=== PATIENT | female | born 1960 | race Caucasian/White ===

== ENCOUNTER → 2020-08-06 09:03 | Outpatient (CLI) | payer OTHER, SELFPAY ==
[2020-08-06 10:09] LABS: Alanine Aminotransferase 27 IU/L (<35); Albumin 4.2 g/dL (3.5-5.0); Albumin Globulin Ratio 1.6 (1.0-2.8); Alkaline Phosphatase 70 U/L (38-126); Aspartate Aminotransferase 26 IU/L (14-36); BUN Creatinine Ratio 25.4 (6-22); Bilirubin Total 0.4 mg/dL (0.2-1.3); Blood Urea Nitrogen 18 mg/dL (7-17); Calcium 9.2 mg/dL (8.4-10.2); Carbon Dioxide 28 mmol/L (22-32); Chloride 102 mmol/L (98-107); Cholesterol 160 mg/dL (140-199); Estimated Glomerular Filt Rate > 60.0 mL/min (>60); Globulin 2.6 g/dL (1.7-4.1); Glucose 120 mg/dL (70-100); HDL Cholesterol 67 mg/dL (40-60); HEMOLYSIS < 15 (0-50); LDL Cholesterol Calculated 50 mg/dL (<100); Sodium 135 mmol/L (137-145); Total Protein 6.8 g/dL (6.3-8.2); Triglycerides 216 mg/dL (35-150)
== END ==
PROVIDERS: PCP Registered Nurse; Referring Provider Registered Nurse; Visit Provider Registered Nurse
DX: I10 Essential (primary) hypertension (principal); Z83.42 Family history of familial hypercholesterolemia
CPT/HCPCS: 36415; 80053; 80061

== ENCOUNTER → 2020-09-30 16:10 | Outpatient (CLI) | payer OTHER, SELFPAY ==
[2020-09-30 18:10] LABS: Add Manual Diff / Slide Review NO; Basophils Absolute Auto 0 /uL (0-100); Basophils Percent Auto 0.3 % (0-2); Eosinophils Absolute Auto 0 /uL (0-450); Eosinophils Percent Auto 0.4 % (2-4); Hematocrit 42.2 % (36-46); Hemoglobin 14.9 g/dL (12.0-16.0); Lymphocytes Absolute Auto 1600 /uL (1100-4500); Lymphocytes Percent Auto 21.4 % (25-40); Mean Corpuscular HGB Conc 35.3 % (30-36); Mean Corpuscular Hemoglobin 33.5 PG (26-34); Mean Corpuscular Volume 94.8 fL (80-100); Monocytes Absolute Auto 900 /uL (0-900); Monocytes Percent Auto 11.4 % (3-14); Neutrophils Absolute Auto 5000 /uL (1500-7000); Neutrophils Percent Auto 66.5 % (50-75); Platelet Count 270 X10^3/uL (150-400); Red Blood Cell Count 4.45 X10^6/uL (4.0-5.2); Red Cell Distribution Width 12.6 % (11.6-14.8); White Blood Cell Count 7.6 X10^3/uL (4.5-11.0)
[2020-09-30 18:21] LABS: Alanine Aminotransferase 31 IU/L (<35); Albumin 4.5 g/dL (3.5-5.0); Albumin Globulin Ratio 1.8 (1.0-2.8); Alkaline Phosphatase 74 U/L (38-126); Aspartate Aminotransferase 35 IU/L (14-36); BUN Creatinine Ratio 20.8 (6-22); Bilirubin Total 0.4 mg/dL (0.2-1.3); Blood Urea Nitrogen 22 mg/dL (7-17); Calcium 9.2 mg/dL (8.4-10.2); Carbon Dioxide 28 mmol/L (22-32); Chloride 102 mmol/L (98-107); Estimated Glomerular Filt Rate 53.2 mL/min (>60); Globulin 2.5 g/dL (1.7-4.1); Glucose 100 mg/dL (70-100); HEMOLYSIS < 15 (0-50); Sodium 135 mmol/L (137-145)
== END ==
PROVIDERS: PCP Registered Nurse; Referring Provider Registered Nurse; Visit Provider Registered Nurse
DX: Z01.812 Encounter for preprocedural laboratory examination (principal)
CPT/HCPCS: 36415; 80053; 85025

== ENCOUNTER → 2021-03-14 07:45 | Outpatient (CLI) | payer OTHER, SELFPAY ==
[2021-03-14 08:56] LABS: BUN Creatinine Ratio 21.4 (6-22); Blood Urea Nitrogen 15 mg/dL (7-17); Calcium 9.3 mg/dL (8.4-10.2); Carbon Dioxide 25 mmol/L (22-32); Chloride 103 mmol/L (98-107); Estimated Glomerular Filt Rate > 60.0 mL/min (>60); Glucose 111 mg/dL (70-100); HEMOLYSIS < 15 (0-50); Potassium 4.5 mmol/L (3.4-5.1); Sodium 137 mmol/L (137-145)
== END ==
PROVIDERS: PCP Nurse Practitioner Family; Referring Provider Nurse Practitioner Family; Visit Provider Nurse Practitioner Family
DX: R94.4 Abnormal results of kidney function studies (principal)
CPT/HCPCS: 36415; 80048

== ENCOUNTER → 2021-05-06 15:53 | Outpatient (CLI) | payer OTHER, SELFPAY ==
[2021-05-06 16:55] LABS: Hemoglobin A1C% w Est Avg Glu 5.6 % (4.0-6.0)
== END ==
PROVIDERS: PCP Nurse Practitioner Family; Referring Provider Nurse Practitioner Family; Visit Provider Nurse Practitioner Family
DX: R73.09 Other abnormal glucose (principal)
CPT/HCPCS: 36415; 83036

== ENCOUNTER → 2021-09-04 07:39 | Outpatient (CLI) | payer OTHER, SELFPAY ==
[2021-09-04 09:10] LABS: Hematocrit 43.6 % (36-46); Hemoglobin 15.3 g/dL (12.0-16.0); Mean Corpuscular HGB Conc 35.2 % (30-36); Mean Corpuscular Hemoglobin 32.8 PG (26-34); Platelet Count 254 X10^3/uL (150-400); Red Blood Cell Count 4.68 X10^6/uL (4.0-5.2); Red Cell Distribution Width 12.3 % (11.6-14.8); White Blood Cell Count 6.7 X10^3/uL (4.5-11.0)
[2021-09-04 09:30] LABS: Alanine Aminotransferase 28 IU/L (<35); Albumin 4.5 g/dL (3.5-5.0); Alkaline Phosphatase 94 U/L (38-126); Aspartate Aminotransferase 32 IU/L (14-36); BUN Creatinine Ratio 21.6 (6-22); Bilirubin Total 0.4 mg/dL (0.2-1.3); Blood Urea Nitrogen 16 mg/dL (7-17); Calcium 9.3 mg/dL (8.4-10.2); Carbon Dioxide 27 mmol/L (22-32); Chloride 105 mmol/L (98-107); Cholesterol 147 mg/dL (140-199); Estimated Glomerular Filt Rate > 60.0 mL/min (>60); Globulin 2.3 g/dL (1.7-4.1); Glucose 95 mg/dL (70-100); HDL Cholesterol 45 mg/dL (40-60); HEMOLYSIS < 15 (0-50); LDL Cholesterol Calculated 76 mg/dL (<100); Potassium 4.5 mmol/L (3.4-5.1); Sodium 139 mmol/L (137-145); Total Protein 6.8 g/dL (6.3-8.2); Triglycerides 132 mg/dL (35-150)
== END ==
PROVIDERS: PCP Nurse Practitioner Family; Referring Provider Nurse Practitioner Family; Visit Provider Nurse Practitioner Family
DX: I10 Essential (primary) hypertension (principal); Z00.00 Encounter for general adult medical examination without abnormal findings; E78.5 Hyperlipidemia, unspecified
CPT/HCPCS: 36415; 80053; 80061; 85027

== ENCOUNTER → 2021-10-08 16:29 | Outpatient (CLI) | payer OTHER, SELFPAY ==
--- NOTE | 2021-10-08 16:30 | DI.MG.S_ITS ---
BILATERAL DIGITAL SCREENING MAMMOGRAM 3D/2D WITH CAD: 10/08/2021 CLINICAL: Routine screening. Family history of breast cancer. Comparison is made to exams dated: 03/01/2020 mammogram, 12/22/2017 mammogram, and 11/19/2015 mammogram - outside location. There are scattered fibroglandular elements in both breasts. Current study was also evaluated with a Computer Aided Detection (CAD) system. No significant masses, calcifications, or other findings are seen in either breast. There has been no significant interval change. IMPRESSION: NEGATIVE There is no mammographic evidence of malignancy. A 1 year screening mammogram is recommended. This exam was interpreted at Station ID: [id number]. NOTE: For mammograms, a report in lay terms will be sent to the patient. Approximately 15% of breast malignancies will not be visualized mammographically. In the management of a palpable breast mass, a negative mammogram must not discourage biopsy of a clinically suspicious lesion. Electronically Signed By: Regulo Boyle M.D., jr/tonia:10/09/2021 09:25:38 letter sent: Normal Exam ACR BI-RADS Category 1: Negative [id number]
== END ==
PROVIDERS: PCP Nurse Practitioner Family; Referring Provider Nurse Practitioner Family; Visit Provider Nurse Practitioner Family
DX: Z12.31 Encounter for screening mammogram for malignant neoplasm of breast (principal); Z80.3 Family history of malignant neoplasm of breast
CPT/HCPCS: 77063; 77067

== ENCOUNTER → 2021-12-24 11:44 | Outpatient (CLI) | payer OTHER, SELFPAY ==
--- NOTE | 2021-12-24 11:46 | DI.RAD.S_ITS ---
PROCEDURE: XR KNEE RT 3V INDICATIONS: Left knee pain >> Right TECHNIQUE: 3 views of the knee were acquired. COMPARISON: None. FINDINGS: Bones: No acute fracture or dislocation. There is mild medial femorotibial compartment narrowing, intercondylar osteophytes, and small tricompartmental osteophytes. Soft tissues: No joint effusion. No suspicious soft tissue calcifications. IMPRESSION: Mild right knee osteoarthritis. Dictated by: Yuni Mcclain M.D. on 12/24/2021 at 12:36 Approved by: Yuni Mcclain M.D. on 12/24/2021 at 12:42
--- NOTE | 2021-12-24 11:46 | DI.RAD.S_ITS ---
PROCEDURE: XR KNEE LT 3V INDICATIONS: Left knee pain >> Right TECHNIQUE: 3 views of the knee were acquired. COMPARISON: None. FINDINGS: Bones: No acute fracture or dislocation. There is mild femorotibial and patellofemoral joint space narrowing and tricompartmental osteophytes. Soft tissues: No joint effusion. No suspicious soft tissue calcifications. IMPRESSION: Mild left knee osteoarthritis. Dictated by: Yuni Mcclain M.D. on 12/24/2021 at 12:59 Approved by: Yuni Mcclain M.D. on 12/24/2021 at 13:03
== END ==
PROVIDERS: PCP Family Medicine; Referring Provider Family Medicine; Visit Provider Family Medicine
DX: M17.0 Bilateral primary osteoarthritis of knee (principal); M25.561 Pain in right knee; M25.562 Pain in left knee
CPT/HCPCS: 73562

== ENCOUNTER 2022-03-17 09:00 | Outpatient (RCR) | payer OTHER, SELFPAY ==
--- NOTE | 2022-02-19 16:58 | PT.OIE ---
Current Diagnoses Pain in right knee (02/19/22) Pain in left knee (02/19/22) Difficulty in walking, not elsewhere classified (02/19/22) Past Medical History (Last Reviewed 01/05/22 @ 11:57 by Mei Gomez MD) BMI 39.0-39.9,adult Decreased GFR (09/2020) Past Surgical History (Last Reviewed 01/05/22 @ 11:57 by Mei Gomez MD) Anesthesia History of section (~1996) History of cholecystectomy (~2016) Hx of laparoscopic gastric banding (~2004) Visit Care Team Role Provider Type Mei Gomez MD Attending Provider Physician Family Provider Primary Care Provider Referring Provider Specialty: Family Practice Address: [address] [place] [address], [id number] Phone: Fax: Email: [email or web address] Initial Evaluation PT-OP-A Visit Information Start: 02/16/22 12:15 Freq: Status: Active Protocol: Document 02/19/22 09:45 AW (Rec: 02/16/22 12:27 AW [id number]) Out-Patient Physical Therapy Visit Information Visit Information Visit Type Initial Evaluation Visit Start Time 09:00 Visit Stop Time 09:45 Total Visit Minutes 45 Visit Number 1 Number of PHONE SPECIALIST Visits 0 Evaluation Information Evaluation Date 02/17/22 PT-OP-B Current Condition Start: 02/16/22 12:15 Freq: Status: Active Protocol: Document 02/19/22 09:45 AW (Rec: 02/16/22 12:27 AW [id number]) Current Condition History of Current Condition Onset Date 10 years, worse recently Current Complaints bilateral knee pain History of Current Condition Tejas has had bilateral knee pain for at least 10 years with insidious onset, no trauma. Pain has been worse in the past few months. She describes knee pain around her kneecaps. It is worst going down hills or stairs. She swims three times weekly as she is training for an international open water swim. Swim training has been ongoing for over a year. Tejas recently realized she was kicking more with her knees than with her hips and has been working to modify her form. She also enjoys hiking and riding her e-bike. PMH includes cholecystectomy, gastric banding, decreased GFR (though improved on recent labs). Pt is otherwise healthy . She is retired from [employer] where she worked with [employer] . 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 Prior Treatments and Tests 12/24/21: xrays - Left mild femorotiabial and patellofemoral joint space narrowing and tricompartmental osteophytes. Right mild medial femorotibial narrowing, small tricompartmental osteophytes. Future Testing and Treatments Planned None identified Treatment Goals Patient/Caregiver Goals Hike down hills,walk down stairs, and swim without knee pain. Improve balance. Improve biking tolerance. Personal Factors Other Personal Factors That May Effect Pt travels frequently which Therapy/Recovery may leave large gaps in her therapy schedule. PT-OP-C Subjective Start: 02/16/22 12:15 Freq: Status: Active Protocol: Document 02/19/22 09:45 AW (Rec: 02/19/22 14:26 AW [id number]) Patient Questionnaires Lower Extremity Functional Scale LEFS Score 65 LEFS Impairment 1 to 19% Impaired (Score 63-79 ) OP-PT Pain Assessment Pain Assessment Grid Paper Pain Assessment Grid Completed Yes: scanned to EMR PT-OP-D Balance Start: 02/16/22 12:15 Freq: Status: Active Protocol: Document 02/19/22 09:45 AW (Rec: 02/19/22 14:26 AW [id number]) Balance Tests Single Limb Standing Single Limb- Right 10-15 sec with lateral shear, positive trendelenberg sign Single Limb- Left 15 sec with lateral shear, positive trendelenberg sign PT-OP-F Manual Assessment Start: 02/16/22 12:15 Freq: Status: Active Protocol: Document 02/19/22 09:45 AW (Rec: 02/19/22 14:26 AW [id number]) Manual Assessments Soft Tissue Assessment Soft Tissue Mobility Assessment Slight hyperdensity distal quadriceps bilaterally. Joint Mobility Assessment Joint Mobility Assessment Reduced patellar glides bilaterally - especially superiorly. Passive SLR to 80 degrees hip flexion bilaterally. Vaguely limited hip IR compared with ER both sides likely due to femoral retroversion. PT-OP-G Mobility & Gait Start: 02/16/22 12:15 Freq: Status: Active Protocol: Document 02/19/22 09:45 AW (Rec: 02/19/22 14:26 AW [id number]) OP Gait Assessment Comments Gait Comments Pt ambulates with vague trendelenberg sign bilaterally . Hips are externally rotated and feet are excessively pronated (right more affected than left). Weak toe-off both sides. PT-OP-H Neuro Start: 02/16/22 12:15 Freq: Status: Active Protocol: Document 02/19/22 09:45 AW (Rec: 02/19/22 16:31 AW [id number]) Sensation Evaluation Gross Sensation Gross Sensation WNL PT-OP-K Range of Motion Start: 02/16/22 12:15 Freq: Status: Active Protocol: Document 02/19/22 09:45 AW (Rec: 02/19/22 16:31 AW [id number]) Hip Goniometric Range of Motion Hip BILAT Hip ROM WFL Yes Hip ROM Limitations Comments Passive SLR to ~80 deg bilaterally. IR:ER ratio ~ 1:2 . Knee Goniometric Range of Motion Knee bilat Knee ROM WFL Yes Patient Position Supine Flexion Active (degrees) 135 Flexion Passive (degrees) 145 Extension Active (degrees) 0 Comments End-ranges do not reproduce pain Ankle and Foot Goniometric Range of Motion Ankle and Foot bilat Ankle/Foot ROM WFL Yes PT-OP-L Special Tests Start: 02/16/22 12:15 Freq: Status: Active Protocol: Document 02/19/22 09:45 AW (Rec: 02/19/22 16:31 AW [id number]) Special Tests Knee Special Tests Jefry's Test Test Results negative bilaterally Patellar Grind Test Test Results positive bilaterally Comments Crepitus and pain reproduction with patellar grind Thessaly Test 5 Degrees Test Results negative bilaterally ligament stress tests Test Results negative Lachmans, valgus and varus stress, posterior draw PT-OP-M Strength Start: 02/16/22 12:15 Freq: Status: Active Protocol: Document 02/19/22 09:45 AW (Rec: 02/19/22 16:37 AW [id number]) Hip Strength Hip Manual Muscle Testing bilat Flexion (L2) 4+ Good+ Extension (S1) 4+ Good+ Abduction 4 Good External Rotation 5 Normal Internal Rotation 5 Normal Knee Strength Knee Manual Muscle Testing bilat Flexion (S2) 4+ Good+ Extension (L3) 5 Normal Ankle/Foot Strength Ankle and Foot Manual Muscle Testing bilat Dorsiflexion (L4) 5 Normal Plantarflexion (S1) 4+ Good+ PT-OP-Q Treatments Start: 02/16/22 12:15 Freq: Status: Active Protocol: Document 02/19/22 09:45 AW (Rec: 02/19/22 16:37 AW [id number]) Manual Therapy Treatment Soft Tissue Mobilization distal quads Body Location distal quads Mobilization Type Rolling,Strumming Intensity/Depth Moderate Body Position Supine Joint Mobilizations P-F Joint palellofemoral Direction superior Grade III Body Position Supine Self-Care/Home Management Treatment Education Other Education Reviewed evaluation findings and proposed plan of care centered on relieving patellofemoral pain, improving hip strength, and general posterior chain strength. Pt understood and agreed. PT-OP-T Assessment and Plan Start: 02/16/22 12:15 Freq: Status: Active Protocol: Document 02/19/22 09:45 AW (Rec: 02/19/22 16:58 AW [id number]) Physical Therapy Assessment Rehab Potential Rehabilitation Potential Good Evaluation Complexity Number of Personal Factors/Comorbidities 1-2 Number of Body Systems Impaired 1-2 Clinical Presentation at Evaluation Stable Impairments Impairments Balance,Gait,Pain,Soft Tissue Mobility,Strength Goals Three Impairment decreased hip strength Longterm Goal (LTG) Pt will improve hip abduction and extension strength to 5/5 for improved kick in swimming. LTG Duration 04/22/22 Two Impairment pain with stair/hill descent Short Term Goal (STG) Pt will descend lobby stairs ( 28 x 4 step) without increase in baseline pain. STG Duration 03/20/22) Longterm Goal (LTG) Pt will hike one hour or longer including incline/ declines without increase in baseline pain. LTG Duration 04/22/22 One Impairment lacks HEP Short Term Goal (STG) Pt will be instructed in HEP for pain management and LE strength to support therapy services provided in clinic. STG Duration 03/20/22 LTG Duration 04/22/22 Assessment Summary Assessment Tejas is a 61 yo woman who attends physical therapy with bilateral knee pain of insidious onset. Her knees have bothered her for about 10 years but more so recently. She presents with decreased bilateral hip strength ( especially extensors and abductors), externally rotated hips, and excess pronation in both feet. Her knees are stable on all stress testing and there is no sign of intra- articular involvement. X-rays show mild to moderate arthritis medially and in patello-femoral joint. Pt does have a positive patellar grind test. Tejas should benefit from skilled physical therapy to address her pain symptoms, improve her hip strength and general lower extremity posterior chain strength for reduced pain with hiking and swimming. Physical Therapy Plan Frequency and Duration Frequency of Treatment 1-2x/week Duration of Treatment 2 months Plan of Care Start Date 02/19/22 Plan of Care End Date 04/22/22 Therapeutic Interventions Therapeutic Interventions Balance Training,Gait Training ,Home Exercise Program,Manual Therapy,Neuromuscular Re- education,Self-Care/Home Management,Taping,Therapeutic Activities,Therapeutic Exercises Modalities Cold Pack/Ice Massage,Electric Stimulation,Hot Packs Next Visit Focus/Plan Next Note Type Treatment Note Next Visit Plan Check Bennie test and treat accordingly. Assess response to patellar mobs and continue if helpful. Initiate hip strength in supine with plan to move quickly to standing.
--- NOTE | 2022-02-19 16:58 | PT.OPPOC ---
Physical, Occupational & Speech Therapy At [facility] Current Diagnoses Pain in right knee (02/19/22) Pain in left knee (02/19/22) Difficulty in walking, not elsewhere classified (02/19/22) Visit Care Team Role Provider Type Mei Gomez MD Attending Provider Physician Family Provider Primary Care Provider Referring Provider Specialty: Family Practice Address: [address] [place] [address], [facility] Phone: Fax: Email: Plan Of Care PT-OP-T Assessment and Plan Start: 02/16/22 12:15 Freq: Status: Active Protocol: Document 02/19/22 09:45 AW (Rec: 02/19/22 16:58 AW [id number]) Physical Therapy Assessment Rehab Potential Rehabilitation Potential Good Evaluation Complexity Number of Personal Factors/Comorbidities 1-2 Number of Body Systems Impaired 1-2 Clinical Presentation at Evaluation Stable Impairments Impairments Balance,Gait,Pain,Soft Tissue Mobility,Strength Goals Three Impairment decreased hip strength Export Agent Goal (LTG) Pt will improve hip abduction and extension strength to 5/5 for improved kick in swimming. LTG Duration 04/22/22 Two Impairment pain with stair/hill descent Short Term Goal (STG) Pt will descend lobby stairs ( 28 x 4 step) without increase in baseline pain. STG Duration 03/20/22) Intermediate Goal (LTG) Pt will hike one hour or longer including incline/ declines without increase in baseline pain. LTG Duration 04/22/22 One Impairment lacks HEP Short Term Goal (STG) Pt will be instructed in HEP for pain management and LE strength to support therapy services provided in clinic. STG Duration 03/20/22 LTG Duration 04/22/22 Assessment Summary Assessment Tejas is a 61 yo woman who attends physical therapy with bilateral knee pain of insidious onset. Her knees have bothered her for about 10 years but more so recently. She presents with decreased bilateral hip strength ( especially extensors and abductors), externally rotated hips, and excess pronation in both feet. Her knees are stable on all stress testing and there is no sign of intra- articular involvement. X-rays show mild to moderate arthritis medially and in patello-femoral joint. Pt does have a positive patellar grind test. Tejas should benefit from skilled physical therapy to address her pain symptoms, improve her hip strength and general lower extremity posterior chain strength for reduced pain with hiking and swimming. Physical Therapy Plan Frequency and Duration Frequency of Treatment 1-2x/week Duration of Treatment 2 months Plan of Care Start Date 02/19/22 Plan of Care End Date 04/22/22 Therapeutic Interventions Therapeutic Interventions Balance Training,Gait Training ,Home Exercise Program,Manual Therapy,Neuromuscular Re- education,Self-Care/Home Management,Taping,Therapeutic Activities,Therapeutic Exercises Modalities Cold Pack/Ice Massage,Electric Stimulation,Hot Packs Next Visit Focus/Plan Next Note Type Treatment Note Next Visit Plan Check Bennie test and treat accordingly. Assess response to patellar mobs and continue if helpful. Initiate hip strength in supine with plan to move quickly to standing. Plan of Care Dates Plan of Care Start Date 02/19/22 Plan of Care End Date 04/22/22 Electronically Signed by: Delmi Alvares, PT 02/19/22 [id number] If you are in agreement with this Plan of Care, please return a signed and dated copy. I have reviewed this Plan of Care and certify that the skilled therapy services above are required to meet the patient?s needs. Physician Signature Date Printed Name and Credentials Clinical Instructor Signature Printed Name and Credentials
--- NOTE | 2022-02-24 12:32 | PT.OTN ---
Current Diagnoses Pain in right knee (02/24/22) Pain in left knee (02/24/22) Difficulty in walking, not elsewhere classified (02/24/22) Physical Therapy Treatment Note PT-OP-A Visit Information Start: 02/16/22 12:15 Freq: Status: Active Protocol: Document 02/24/22 09:01 AW (Rec: 02/24/22 09:48 AW [id number]) Out-Patient Physical Therapy Visit Information Visit Information Visit Type Treatment Note Visit Start Time 09:00 Visit Stop Time 09:45 Total Visit Minutes 45 Visit Number 2 Number of EMISSIONS INSPECTOR Visits 0 Evaluation Information Evaluation Date 02/17/22 PT-OP-B Current Condition Start: 02/16/22 12:15 Freq: Status: Active Protocol: Document 02/19/22 09:45 AW (Rec: 02/16/22 12:27 AW [id number]) Current Condition History of Current Condition Onset Date 10 years, worse recently Current Complaints bilateral knee pain History of Current Condition Tejas has had bilateral knee pain for at least 10 years with insidious onset, no trauma. Pain has been worse in the past few months. She describes knee pain around her kneecaps. It is worst going down hills or stairs. She swims three times weekly as she is training for an international open water swim. Swim training has been ongoing for over a year. Tejas recently realized she was kicking more with her knees than with her hips and has been working to modify her form. She also enjoys hiking and riding her e-bike. PMH includes cholecystectomy, gastric banding, decreased GFR (though improved on recent labs). Pt is otherwise healthy . She is retired from [employer] where she worked with [employer] . 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 Prior Treatments and Tests 12/24/21: xrays - Left mild femorotiabial and patellofemoral joint space narrowing and tricompartmental osteophytes. Right mild medial femorotibial narrowing, small tricompartmental osteophytes. Future Testing and Treatments Planned None identified Treatment Goals Patient/Caregiver Goals Hike down hills,walk down stairs, and swim without knee pain. Improve balance. Improve biking tolerance. Personal Factors Other Personal Factors That May Effect Pt travels frequently which Therapy/Recovery may leave large gaps in her therapy schedule. PT-OP-C Subjective Start: 02/16/22 12:15 Freq: Status: Active Protocol: Document 02/24/22 09:01 AW (Rec: 02/24/22 09:48 AW [id number]) OP-PT Subjective Patient Comments Patient Comments Feeling good today but was on a boat yesterday. Was up and down stairs which irritated her knees. PT-OP-D Balance Start: 02/16/22 12:15 Freq: Status: Active Protocol: Document 02/19/22 09:45 AW (Rec: 02/19/22 14:26 AW [id number]) Balance Tests Single Limb Standing Single Limb- Right 10-15 sec with lateral shear, positive trendelenberg sign Single Limb- Left 15 sec with lateral shear, positive trendelenberg sign PT-OP-F Manual Assessment Start: 02/16/22 12:15 Freq: Status: Active Protocol: Document 02/19/22 09:45 AW (Rec: 02/19/22 14:26 AW [id number]) Manual Assessments Soft Tissue Assessment Soft Tissue Mobility Assessment Slight hyperdensity distal quadriceps bilaterally. Joint Mobility Assessment Joint Mobility Assessment Reduced patellar glides bilaterally - especially superiorly. Passive SLR to 80 degrees hip flexion bilaterally. Vaguely limited hip IR compared with ER both sides likely due to femoral retroversion. PT-OP-G Mobility & Gait Start: 02/16/22 12:15 Freq: Status: Active Protocol: Document 02/19/22 09:45 AW (Rec: 02/19/22 14:26 AW [id number]) OP Gait Assessment Comments Gait Comments Pt ambulates with vague trendelenberg sign bilaterally . Hips are externally rotated and feet are excessively pronated (right more affected than left). Weak toe-off both sides. PT-OP-H Neuro Start: 02/16/22 12:15 Freq: Status: Active Protocol: Document 02/19/22 09:45 AW (Rec: 02/19/22 16:31 AW [id number]) Sensation Evaluation Gross Sensation Gross Sensation WNL PT-OP-K Range of Motion Start: 02/16/22 12:15 Freq: Status: Active Protocol: Document 02/19/22 09:45 AW (Rec: 02/19/22 16:31 AW [id number]) Hip Goniometric Range of Motion Hip BILAT Hip ROM WFL Yes Hip ROM Limitations Comments Passive SLR to ~80 deg bilaterally. IR:ER ratio ~ 1:2 . Knee Goniometric Range of Motion Knee bilat Knee ROM WFL Yes Patient Position Supine Flexion Active (degrees) 135 Flexion Passive (degrees) 145 Extension Active (degrees) 0 Comments End-ranges do not reproduce pain Ankle and Foot Goniometric Range of Motion Ankle and Foot bilat Ankle/Foot ROM WFL Yes PT-OP-L Special Tests Start: 02/16/22 12:15 Freq: Status: Active Protocol: Document 02/19/22 09:45 AW (Rec: 02/19/22 16:31 AW [id number]) Special Tests Knee Special Tests Jefry's Test Test Results negative bilaterally Patellar Grind Test Test Results positive bilaterally Comments Crepitus and pain reproduction with patellar grind Thessaly Test 5 Degrees Test Results negative bilaterally ligament stress tests Test Results negative Lachmans, valgus and varus stress, posterior draw PT-OP-M Strength Start: 02/16/22 12:15 Freq: Status: Active Protocol: Document 02/19/22 09:45 AW (Rec: 02/19/22 16:37 AW [id number]) Hip Strength Hip Manual Muscle Testing bilat Flexion (L2) 4+ Good+ Extension (S1) 4+ Good+ Abduction 4 Good External Rotation 5 Normal Internal Rotation 5 Normal Knee Strength Knee Manual Muscle Testing bilat Flexion (S2) 4+ Good+ Extension (L3) 5 Normal Ankle/Foot Strength Ankle and Foot Manual Muscle Testing bilat Dorsiflexion (L4) 5 Normal Plantarflexion (S1) 4+ Good+ PT-OP-Q Treatments Start: 02/16/22 12:15 Freq: Status: Active Protocol: Document 02/24/22 09:01 AW (Rec: 02/24/22 09:48 AW [id number]) Cardio Equipment Bicycle (Upright) Duration (Minutes) 5 Resistance 8 Seat Position 2 Therapeutic Exercises Supine Exercises bridge Supine Exercise Name bridge Resistance TB2 at knees Reps/Minutes 5SH x 10 Comments HEP modified Bennie test stretch Supine Exercise Name modified Bennie test stretch Side bilateral Reps/Minutes 30SH x 2 Prone Exercises quad stretch with strap Prone Exercise Name quad stretch with strap Side bilateral Reps/Minutes 2 min end-range Comments HEP Standing Exercises hip hike Standing Exercise Name hip hike Side bilateral Equipment Used 6 step + rail Comments HEP Manual Therapy Treatment Soft Tissue Mobilization distal quads Body Location distal quads Mobilization Type Rolling,Strumming Intensity/Depth Moderate Body Position Supine Joint Mobilizations P-F Joint palellofemoral Direction superior Grade III Body Position Supine Self-Care/Home Management Treatment Education Other Education Initial HEP and education on PFS issued in written form. See copies scanned to EMR. PT-OP-T Assessment and Plan Start: 02/16/22 12:15 Freq: Status: Active Protocol: Document 02/24/22 09:01 AW (Rec: 02/24/22 09:48 AW [id number]) Physical Therapy Assessment Goals Three Impairment decreased hip strength Mcfp Goal (LTG) Pt will improve hip abduction and extension strength to 5/5 for improved kick in swimming. LTG Duration 04/22/22 Two Impairment pain with stair/hill descent Short Term Goal (STG) Pt will descend lobby stairs ( 28 x 4 step) without increase in baseline pain. STG Duration 03/20/22) Mcfp Goal (LTG) Pt will hike one hour or longer including incline/ declines without increase in baseline pain. LTG Duration 04/22/22 One Impairment lacks HEP Short Term Goal (STG) Pt will be instructed in HEP for pain management and LE strength to support therapy services provided in clinic. STG Duration 03/20/22 LTG Duration 04/22/22 Assessment Summary Assessment Tejas tolerated ther ex well and continued to have positive response to patellar mobs. Focused treatment today on education, patellar mobility, and hip strength. Physical Therapy Plan Frequency and Duration Frequency of Treatment 1-2x/week Duration of Treatment 2 months Plan of Care Start Date 02/19/22 Plan of Care End Date 04/22/22 Therapeutic Interventions Therapeutic Interventions Balance Training,Gait Training ,Home Exercise Program,Manual Therapy,Neuromuscular Re- education,Self-Care/Home Management,Taping,Therapeutic Activities,Therapeutic Exercises Modalities Cold Pack/Ice Massage,Electric Stimulation,Hot Packs Next Visit Focus/Plan Next Note Type Treatment Note Next Visit Plan Continue patellar mobs, STM distal quads. Review hip strength and progress as able.
--- NOTE | 2022-03-10 12:30 | PT.OTN ---
Current Diagnoses Pain in right knee (03/10/22) Pain in left knee (03/10/22) Difficulty in walking, not elsewhere classified (03/10/22) Physical Therapy Treatment Note PT-OP-A Visit Information Start: 02/16/22 12:15 Freq: Status: Active Protocol: Document 03/10/22 08:51 AW (Rec: 03/10/22 09:50 AW [id number]) Out-Patient Physical Therapy Visit Information Visit Information Visit Type Treatment Note Visit Start Time 09:00 Visit Stop Time 09:45 Total Visit Minutes 45 Visit Number 3 Number of PERSONAL INJURY ATTORNEY Visits 0 Evaluation Information Evaluation Date 02/17/22 PT-OP-B Current Condition Start: 02/16/22 12:15 Freq: Status: Active Protocol: Document 02/19/22 09:45 AW (Rec: 02/16/22 12:27 AW [id number]) Current Condition History of Current Condition Onset Date 10 years, worse recently Current Complaints bilateral knee pain History of Current Condition Tejas has had bilateral knee pain for at least 10 years with insidious onset, no trauma. Pain has been worse in the past few months. She describes knee pain around her kneecaps. It is worst going down hills or stairs. She swims three times weekly as she is training for an international open water swim. Swim training has been ongoing for over a year. Tejas recently realized she was kicking more with her knees than with her hips and has been working to modify her form. She also enjoys hiking and riding her e-bike. PMH includes cholecystectomy, gastric banding, decreased GFR (though improved on recent labs). Pt is otherwise healthy . 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 Prior Treatments and Tests 12/24/21: xrays - Left mild femorotiabial and patellofemoral joint space narrowing and tricompartmental osteophytes. Right mild medial femorotibial narrowing, small tricompartmental osteophytes. Future Testing and Treatments Planned None identified Treatment Goals Patient/Caregiver Goals Hike down hills,walk down stairs, and swim without knee pain. Improve balance. Improve biking tolerance. Personal Factors Other Personal Factors That May Effect Pt travels frequently which Therapy/Recovery may leave large gaps in her therapy schedule. PT-OP-C Subjective Start: 02/16/22 12:15 Freq: Status: Active Protocol: Document 03/10/22 08:51 AW (Rec: 03/10/22 09:50 AW [id number]) OP-PT Subjective Patient Comments Patient Comments [place] Knees are still really bothering her - especially going down stairs. Pt admits she has not engaged consistently with HEP. PT-OP-D Balance Start: 02/16/22 12:15 Freq: Status: Active Protocol: Document 02/19/22 09:45 AW (Rec: 02/19/22 14:26 AW [id number]) Balance Tests Single Limb Standing Single Limb- Right 10-15 sec with lateral shear, positive trendelenberg sign Single Limb- Left 15 sec with lateral shear, positive trendelenberg sign PT-OP-F Manual Assessment Start: 02/16/22 12:15 Freq: Status: Active Protocol: Document 02/19/22 09:45 AW (Rec: 02/19/22 14:26 AW [id number]) Manual Assessments Soft Tissue Assessment Soft Tissue Mobility Assessment Slight hyperdensity distal quadriceps bilaterally. Joint Mobility Assessment Joint Mobility Assessment Reduced patellar glides bilaterally - especially superiorly. Passive SLR to 80 degrees hip flexion bilaterally. Vaguely limited hip IR compared with ER both sides likely due to femoral retroversion. PT-OP-G Mobility & Gait Start: 02/16/22 12:15 Freq: Status: Active Protocol: Document 02/19/22 09:45 AW (Rec: 02/19/22 14:26 AW [id number]) OP Gait Assessment Comments Gait Comments Pt ambulates with vague trendelenberg sign bilaterally . Hips are externally rotated and feet are excessively pronated (right more affected than left). Weak toe-off both sides. PT-OP-H Neuro Start: 02/16/22 12:15 Freq: Status: Active Protocol: Document 02/19/22 09:45 AW (Rec: 02/19/22 16:31 AW [id number]) Sensation Evaluation Gross Sensation Gross Sensation WNL PT-OP-K Range of Motion Start: 02/16/22 12:15 Freq: Status: Active Protocol: Document 02/19/22 09:45 AW (Rec: 02/19/22 16:31 AW [id number]) Hip Goniometric Range of Motion Hip BILAT Hip ROM WFL Yes Hip ROM Limitations Comments Passive SLR to ~80 deg bilaterally. IR:ER ratio ~ 1:2 . Knee Goniometric Range of Motion Knee bilat Knee ROM WFL Yes Patient Position Supine Flexion Active (degrees) 135 Flexion Passive (degrees) 145 Extension Active (degrees) 0 Comments End-ranges do not reproduce pain Ankle and Foot Goniometric Range of Motion Ankle and Foot bilat Ankle/Foot ROM WFL Yes PT-OP-L Special Tests Start: 02/16/22 12:15 Freq: Status: Active Protocol: Document 02/19/22 09:45 AW (Rec: 02/19/22 16:31 AW [id number]) Special Tests Knee Special Tests Jefry's Test Test Results negative bilaterally Patellar Grind Test Test Results positive bilaterally Comments Crepitus and pain reproduction with patellar grind Thessaly Test 5 Degrees Test Results negative bilaterally ligament stress tests Test Results negative Lachmans, valgus and varus stress, posterior draw PT-OP-M Strength Start: 02/16/22 12:15 Freq: Status: Active Protocol: Document 02/19/22 09:45 AW (Rec: 02/19/22 16:37 AW [id number]) Hip Strength Hip Manual Muscle Testing bilat Flexion (L2) 4+ Good+ Extension (S1) 4+ Good+ Abduction 4 Good External Rotation 5 Normal Internal Rotation 5 Normal Knee Strength Knee Manual Muscle Testing bilat Flexion (S2) 4+ Good+ Extension (L3) 5 Normal Ankle/Foot Strength Ankle and Foot Manual Muscle Testing bilat Dorsiflexion (L4) 5 Normal Plantarflexion (S1) 4+ Good+ PT-OP-Q Treatments Start: 02/16/22 12:15 Freq: Status: Active Protocol: Document 03/10/22 08:51 AW (Rec: 03/10/22 09:50 AW [id number]) Cardio Equipment Bicycle (Upright) Duration (Minutes) 5 Resistance 8 Seat Position 2 Therapeutic Exercises Supine Exercises bridge Supine Exercise Name bridge Resistance TB2 at knees Reps/Minutes 5SH x 10 Comments HEP Prone Exercises quad stretch with strap Prone Exercise Name quad stretch with strap Side bilateral Comments reviewed as option for HEP Sidelying Exercises clam and reverse clam Sidelying Exercise Name clam and reverse clam Side bilateral Resistance TB1 for clam; AROM for reverse Comments clam for HEP Standing Exercises quad stretch with chair Standing Exercise Name quad stretch with chair Comments option for HEP TKE Standing Exercise Name TKE Side bilateral Resistance TB2 Comments HEP hip hike Standing Exercise Name hip hike Side bilateral Equipment Used 6 step + rail Comments HEP review Manual Therapy Treatment Soft Tissue Mobilization distal quads Body Location distal quads Mobilization Type Rolling,Strumming Intensity/Depth Moderate Body Position Supine Joint Mobilizations P-F Joint palellofemoral Direction superior Grade III Body Position Supine Self-Care/Home Management Treatment Education Other Education HEP: [employer] access code [email or web address] PT-OP-T Assessment and Plan Start: 02/16/22 12:15 Freq: Status: Active Protocol: Document 03/10/22 08:51 AW (Rec: 03/10/22 09:50 AW [id number]) Physical Therapy Assessment Goals Three Impairment decreased hip strength [employer] Maker Goal (LTG) Pt will improve hip abduction and extension strength to 5/5 for improved kick in swimming. LTG Duration 04/22/22 Two Impairment pain with stair/hill descent Short Term Goal (STG) Pt will descend lobby stairs ( 28 x 4 step) without increase in baseline pain. STG Duration 03/20/22) Jail Goal (LTG) Pt will hike one hour or longer including incline/ declines without increase in baseline pain. LTG Duration 04/22/22 One Impairment lacks HEP Short Term Goal (STG) Pt will be instructed in HEP for pain management and LE strength to support therapy services provided in clinic. STG Duration 03/20/22 LTG Duration 04/22/22 Assessment Summary Assessment Tejas continues to have bilateral knee pain affecting her ability to descend hills and stairs. Reviewed HEP today and continued patellar mobs and distal quads STM for improved patellofemoral glide. Will revisit hip and knee strength next visit, Physical Therapy Plan Frequency and Duration Frequency of Treatment 1-2x/week Duration of Treatment 2 months Plan of Care Start Date 02/19/22 Plan of Care End Date 04/22/22 Therapeutic Interventions Therapeutic Interventions Balance Training,Gait Training ,Home Exercise Program,Manual Therapy,Neuromuscular Re- education,Self-Care/Home Management,Taping,Therapeutic Activities,Therapeutic Exercises Modalities Cold Pack/Ice Massage,Electric Stimulation,Hot Packs Next Visit Focus/Plan Next Note Type Treatment Note Next Visit Plan Continue patellar mobs, STM distal quads. Review hip strength, knee extension strength and progress as able. Assess staits?
--- NOTE | 2022-03-17 12:19 | PT.OTN ---
Current Diagnoses Pain in right knee (03/17/22) Pain in left knee (03/17/22) Difficulty in walking, not elsewhere classified (03/17/22) Physical Therapy Treatment Note PT-OP-A Visit Information Start: 02/16/22 12:15 Freq: Status: Active Protocol: Document 03/17/22 08:35 AW (Rec: 03/17/22 09:45 AW [id number]) Out-Patient Physical Therapy Visit Information Visit Information Visit Type Treatment Note Visit Start Time 09:00 Visit Stop Time 09:40 Total Visit Minutes 40 Visit Number 4 Number of JOCKEY AGENT Visits 0 Evaluation Information Evaluation Date 02/17/22 PT-OP-B Current Condition Start: 02/16/22 12:15 Freq: Status: Active Protocol: Document 02/19/22 09:45 AW (Rec: 02/16/22 12:27 AW [id number]) Current Condition History of Current Condition Onset Date 10 years, worse recently Current Complaints bilateral knee pain History of Current Condition Tejas has had bilateral knee pain for at least 10 years with insidious onset, no trauma. Pain has been worse in the past few months. She describes knee pain around her kneecaps. It is worst going down hills or stairs. She swims three times weekly as she is training for an international open water swim. Swim training has been ongoing for over a year. Tejas recently realized she was kicking more with her knees than with her hips and has been working to modify her form. She also enjoys hiking and riding her e-bike. PMH includes cholecystectomy, gastric banding, decreased GFR (though improved on recent labs). Pt is otherwise healthy . 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 Prior Treatments and Tests 12/24/21: xrays - Left mild femorotiabial and patellofemoral joint space narrowing and tricompartmental osteophytes. Right mild medial femorotibial narrowing, small tricompartmental osteophytes. Future Testing and Treatments Planned None identified Treatment Goals Patient/Caregiver Goals Hike down hills,walk down stairs, and swim without knee pain. Improve balance. Improve biking tolerance. Personal Factors Other Personal Factors That May Effect Pt travels frequently which Therapy/Recovery may leave large gaps in her therapy schedule. PT-OP-C Subjective Start: 02/16/22 12:15 Freq: Status: Active Protocol: Document 03/17/22 08:35 AW (Rec: 03/17/22 09:45 AW [id number]) OP-PT Subjective Patient Comments Patient Comments I went down a long flight of stairs yesterday and didn't hurt at all. Patient Reported Progress Improving PT-OP-D Balance Start: 02/16/22 12:15 Freq: Status: Active Protocol: Document 02/19/22 09:45 AW (Rec: 02/19/22 14:26 AW [id number]) Balance Tests Single Limb Standing Single Limb- Right 10-15 sec with lateral shear, positive trendelenberg sign Single Limb- Left 15 sec with lateral shear, positive trendelenberg sign PT-OP-F Manual Assessment Start: 02/16/22 12:15 Freq: Status: Active Protocol: Document 02/19/22 09:45 AW (Rec: 02/19/22 14:26 AW [id number]) Manual Assessments Soft Tissue Assessment Soft Tissue Mobility Assessment Slight hyperdensity distal quadriceps bilaterally. Joint Mobility Assessment Joint Mobility Assessment Reduced patellar glides bilaterally - especially superiorly. Passive SLR to 80 degrees hip flexion bilaterally. Vaguely limited hip IR compared with ER both sides likely due to femoral retroversion. PT-OP-G Mobility & Gait Start: 02/16/22 12:15 Freq: Status: Active Protocol: Document 02/19/22 09:45 AW (Rec: 02/19/22 14:26 AW [id number]) OP Gait Assessment Comments Gait Comments Pt ambulates with vague trendelenberg sign bilaterally . Hips are externally rotated and feet are excessively pronated (right more affected than left). Weak toe-off both sides. PT-OP-H Neuro Start: 02/16/22 12:15 Freq: Status: Active Protocol: Document 02/19/22 09:45 AW (Rec: 02/19/22 16:31 AW [id number]) Sensation Evaluation Gross Sensation Gross Sensation WNL PT-OP-K Range of Motion Start: 02/16/22 12:15 Freq: Status: Active Protocol: Document 02/19/22 09:45 AW (Rec: 02/19/22 16:31 AW [id number]) Hip Goniometric Range of Motion Hip BILAT Hip ROM WFL Yes Hip ROM Limitations Comments Passive SLR to ~80 deg bilaterally. IR:ER ratio ~ 1:2 . Knee Goniometric Range of Motion Knee bilat Knee ROM WFL Yes Patient Position Supine Flexion Active (degrees) 135 Flexion Passive (degrees) 145 Extension Active (degrees) 0 Comments End-ranges do not reproduce pain Ankle and Foot Goniometric Range of Motion Ankle and Foot bilat Ankle/Foot ROM WFL Yes PT-OP-L Special Tests Start: 02/16/22 12:15 Freq: Status: Active Protocol: Document 02/19/22 09:45 AW (Rec: 02/19/22 16:31 AW [id number]) Special Tests Knee Special Tests Jefry's Test Test Results negative bilaterally Patellar Grind Test Test Results positive bilaterally Comments Crepitus and pain reproduction with patellar grind Thessaly Test 5 Degrees Test Results negative bilaterally ligament stress tests Test Results negative Lachmans, valgus and varus stress, posterior draw PT-OP-M Strength Start: 02/16/22 12:15 Freq: Status: Active Protocol: Document 02/19/22 09:45 AW (Rec: 02/19/22 16:37 AW [id number]) Hip Strength Hip Manual Muscle Testing bilat Flexion (L2) 4+ Good+ Extension (S1) 4+ Good+ Abduction 4 Good External Rotation 5 Normal Internal Rotation 5 Normal Knee Strength Knee Manual Muscle Testing bilat Flexion (S2) 4+ Good+ Extension (L3) 5 Normal Ankle/Foot Strength Ankle and Foot Manual Muscle Testing bilat Dorsiflexion (L4) 5 Normal Plantarflexion (S1) 4+ Good+ PT-OP-Q Treatments Start: 02/16/22 12:15 Freq: Status: Active Protocol: Document 03/17/22 08:35 AW (Rec: 03/17/22 09:45 AW [id number]) Cardio Equipment Recumbent Bicycle Duration (Minutes) 5 Resistance 8 Seat Position 3 Other upright not avail Therapeutic Exercises Supine Exercises bridge Supine Exercise Name bridge Resistance feet on 55 cm ball Reps/Minutes 5SH x 15 Sidelying Exercises hip abduction Sidelying Exercise Name hip abduction Side bilateral Resistance AROM Reps/Minutes 2x15 Comments HEP Standing Exercises resisted lateral step Standing Exercise Name resisted lateral step Resistance yellow loop Reps/Minutes 15' lap x 2 Comments HEP heel lift Standing Exercise Name heel lift Side bilateral Resistance AROM Equipment Used 6 step Reps/Minutes full range x 20 Comments HEP quad stretch with chair Standing Exercise Name quad stretch with chair Equipment Used tx table front, chair behind Comments HEP review TKE Standing Exercise Name TKE Side bilateral Resistance TB3 Comments HEP Manual Therapy Treatment Soft Tissue Mobilization gastrocs Body Location gastrocs Mobilization Type Sustained Pressure,Trigger Point Release Intensity/Depth Moderate Body Position Supine Comments trigger points medial gastroc bilaterally improved post STM Joint Mobilizations P-F Joint palellofemoral Direction superior Grade III Body Position Supine Self-Care/Home Management Treatment Education Other Education HEP: [employer] access code [email or web address] PT-OP-T Assessment and Plan Start: 02/16/22 12:15 Freq: Status: Active Protocol: Document 03/17/22 08:35 AW (Rec: 03/17/22 09:45 AW [id number]) Physical Therapy Assessment Goals Three Impairment decreased hip strength Offset Lithographic Press Setter Goal (LTG) Pt will improve hip abduction and extension strength to 5/5 for improved kick in swimming. LTG Duration 04/22/22 Two Impairment pain with stair/hill descent Short Term Goal (STG) Pt will descend lobby stairs ( 28 x 4 step) without increase in baseline pain. STG Duration 03/17/22 GOAL MET Prison Goal (LTG) Pt will hike one hour or longer including incline/ declines without increase in baseline pain. LTG Duration 04/22/22 One Impairment lacks HEP Short Term Goal (STG) Pt will be instructed in HEP for pain management and LE strength to support therapy services provided in clinic. STG Duration 03/20/22 LTG Duration 04/22/22 Assessment Summary Assessment Tejas reports improving tolerance for stairs. Continued focus on knee and hip strength today as pt prepares for open water swim [place] to [place]. Plan to continue and reassess stairs when pt returns. Physical Therapy Plan Frequency and Duration Frequency of Treatment 1-2x/week Duration of Treatment 2 months Plan of Care Start Date 02/19/22 Plan of Care End Date 04/22/22 Therapeutic Interventions Therapeutic Interventions Balance Training,Gait Training ,Home Exercise Program,Manual Therapy,Neuromuscular Re- education,Self-Care/Home Management,Taping,Therapeutic Activities,Therapeutic Exercises Modalities Cold Pack/Ice Massage,Electric Stimulation,Hot Packs Next Visit Focus/Plan Next Note Type Treatment Note Next Visit Plan Continue patellar mobs, STM distal quads. Review hip strength, knee extension strength and progress as able. Assess stairs?
--- NOTE | 2022-04-28 09:13 | PT-OP ANOTE ---
Pt did not show for scheduled appointment. Called to discuss and pt indicates she responded NO to text message and received an email confirmation that she had, indeed, cancelled today's appointment. Furthermore, pt feels ready to discharge from therapy. Will initiate discharge summary.
--- NOTE | 2022-04-28 09:16 | PT.OPDS ---
Current Diagnoses Pain in right knee (03/17/22) Pain in left knee (03/17/22) Difficulty in walking, not elsewhere classified (03/17/22) Visit Care Team Role Provider Type Mei Gomez MD Attending Provider Physician Family Provider Primary Care Provider Referring Provider Specialty: Family Practice Address: [address] [place] [address], [id number] Phone: Fax: Email: .GPB Scientific Visit Number Visit Number 4 Discharge Summary PT-OP-B Current Condition Start: 02/16/22 12:15 Freq: Status: Active Protocol: Document 02/19/22 09:45 AW (Rec: 02/16/22 12:27 AW [id number]) Current Condition History of Current Condition Onset Date 10 years, worse recently Current Complaints bilateral knee pain History of Current Condition Tejas has had bilateral knee pain for at least 10 years with insidious onset, no trauma. Pain has been worse in the past few months. She describes knee pain around her kneecaps. It is worst going down hills or stairs. She swims three times weekly as she is training for an international open water swim. Swim training has been ongoing for over a year. Tejas recently realized she was kicking more with her knees than with her hips and has been working to modify her form. She also enjoys hiking and riding her e-bike. PMH includes cholecystectomy, gastric banding, decreased GFR (though improved on recent labs). Pt is otherwise healthy . 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 Prior Treatments and Tests 12/24/21: xrays - Left mild femorotiabial and patellofemoral joint space narrowing and tricompartmental osteophytes. Right mild medial femorotibial narrowing, small tricompartmental osteophytes. Future Testing and Treatments Planned None identified Treatment Goals Patient/Caregiver Goals Hike down hills,walk down stairs, and swim without knee pain. Improve balance. Improve biking tolerance. Personal Factors Other Personal Factors That May Effect Pt travels frequently which Therapy/Recovery may leave large gaps in her therapy schedule. PT-OP-C Subjective Start: 02/16/22 12:15 Freq: Status: Active Protocol: Document 03/17/22 08:35 AW (Rec: 03/17/22 09:45 AW [id number]) OP-PT Subjective Patient Comments Patient Comments I went down a long flight of stairs yesterday and didn't hurt at all. Patient Reported Progress Improving PT-OP-D Balance Start: 02/16/22 12:15 Freq: Status: Active Protocol: Document 02/19/22 09:45 AW (Rec: 02/19/22 14:26 AW [id number]) Balance Tests Single Limb Standing Single Limb- Right 10-15 sec with lateral shear, positive trendelenberg sign Single Limb- Left 15 sec with lateral shear, positive trendelenberg sign PT-OP-F Manual Assessment Start: 02/16/22 12:15 Freq: Status: Active Protocol: Document 02/19/22 09:45 AW (Rec: 02/19/22 14:26 AW [id number]) Manual Assessments Soft Tissue Assessment Soft Tissue Mobility Assessment Slight hyperdensity distal quadriceps bilaterally. Joint Mobility Assessment Joint Mobility Assessment Reduced patellar glides bilaterally - especially superiorly. Passive SLR to 80 degrees hip flexion bilaterally. Vaguely limited hip IR compared with ER both sides likely due to femoral retroversion. PT-OP-G Mobility & Gait Start: 02/16/22 12:15 Freq: Status: Active Protocol: Document 02/19/22 09:45 AW (Rec: 02/19/22 14:26 AW [id number]) OP Gait Assessment Comments Gait Comments Pt ambulates with vague trendelenberg sign bilaterally . Hips are externally rotated and feet are excessively pronated (right more affected than left). Weak toe-off both sides. PT-OP-H Neuro Start: 02/16/22 12:15 Freq: Status: Active Protocol: Document 02/19/22 09:45 AW (Rec: 02/19/22 16:31 AW [id number]) Sensation Evaluation Gross Sensation Gross Sensation WNL PT-OP-K Range of Motion Start: 02/16/22 12:15 Freq: Status: Active Protocol: Document 02/19/22 09:45 AW (Rec: 02/19/22 16:31 AW [id number]) Hip Goniometric Range of Motion Hip BILAT Hip ROM WFL Yes Hip ROM Limitations Comments Passive SLR to ~80 deg bilaterally. IR:ER ratio ~ 1:2 . Knee Goniometric Range of Motion Knee bilat Knee ROM WFL Yes Patient Position Supine Flexion Active (degrees) 135 Flexion Passive (degrees) 145 Extension Active (degrees) 0 Comments End-ranges do not reproduce pain Ankle and Foot Goniometric Range of Motion Ankle and Foot bilat Ankle/Foot ROM WFL Yes PT-OP-L Special Tests Start: 02/16/22 12:15 Freq: Status: Active Protocol: Document 02/19/22 09:45 AW (Rec: 02/19/22 16:31 AW [id number]) Special Tests Knee Special Tests Jefry's Test Test Results negative bilaterally Patellar Grind Test Test Results positive bilaterally Comments Crepitus and pain reproduction with patellar grind Thessaly Test 5 Degrees Test Results negative bilaterally ligament stress tests Test Results negative Lachmans, valgus and varus stress, posterior draw PT-OP-M Strength Start: 02/16/22 12:15 Freq: Status: Active Protocol: Document 02/19/22 09:45 AW (Rec: 02/19/22 16:37 AW [id number]) Hip Strength Hip Manual Muscle Testing bilat Flexion (L2) 4+ Good+ Extension (S1) 4+ Good+ Abduction 4 Good External Rotation 5 Normal Internal Rotation 5 Normal Knee Strength Knee Manual Muscle Testing bilat Flexion (S2) 4+ Good+ Extension (L3) 5 Normal Ankle/Foot Strength Ankle and Foot Manual Muscle Testing bilat Dorsiflexion (L4) 5 Normal Plantarflexion (S1) 4+ Good+ PT-OP-T Assessment and Plan Start: 02/16/22 12:15 Freq: Status: Active Protocol: Document 04/28/22 09:15 AW (Rec: 04/28/22 09:16 AW [id number]) Physical Therapy Plan Discharge Physical Therapy Discharge Reasons Patient Request Discharge Comments Pt has met her personal goals. At last visit, pt had indicated much improved tolerance for stairs. She feels ready to discharge from current plan of care and understands she would need a new referral to return to PT.
== END 2022-04-29 13:57 ==
LOC: PHYS 09:00
PROVIDERS: Family Provider Family Medicine; PCP Family Medicine; Referring Provider Family Medicine; Visit Provider Family Medicine
DX: M25.561 Pain in right knee (principal); M25.562 Pain in left knee; R26.2 Difficulty in walking, not elsewhere classified
CPT/HCPCS: 97110; 97140; 97161

== ENCOUNTER → 2022-10-12 14:36 | Outpatient (CLI) | payer OTHER, SELFPAY ==
--- NOTE | 2022-10-12 | DI.MG.S_ITS ---
BILATERAL DIGITAL SCREENING MAMMOGRAM 3D/2D WITH CAD: 10/12/2022 CLINICAL: Routine screening. Family history of breast cancer. Comparison is made to exams dated: 10/08/2021 mammogram - [facility], 03/01/2020 mammogram, and 12/22/2017 mammogram - outside location. There are scattered areas of fibroglandular density in both breasts (category b / 25%-50% glandular tissue). Current study was also evaluated with a Computer Aided Detection (CAD) system. There are benign calcifications in the left breast. No significant masses, calcifications, or other findings are seen in either breast. There has been no significant interval change. IMPRESSION: BENIGN There is no mammographic evidence of malignancy. A 1 year screening mammogram is recommended. Based on the Tyrer Cuzick model (a risk assessment model) the patient's lifetime risk is 8.6% and her 10 year risk is 3.5%. According to the ACR, ACS, and NCCN guidelines, an annual breast MRI exam along with mammogram is recommended if the patient's lifetime risk is 20% or greater. This exam was interpreted at Station ID: [id number]. NOTE: For mammograms, a report in lay terms will be sent to the patient. Approximately 15% of breast malignancies will not be visualized mammographically. In the management of a palpable breast mass, a negative mammogram must not discourage biopsy of a clinically suspicious lesion. Electronically Signed By: Garth santo/tonia:10/12/2022 16:21:13 letter sent: Normal Exam ACR BI-RADS Category 2: Benign Finding(s) 3342F
== END ==
PROVIDERS: Family Provider Family Medicine; PCP Family Medicine; Referring Provider Family Medicine; Visit Provider Family Medicine
DX: Z12.31 Encounter for screening mammogram for malignant neoplasm of breast (principal); Z80.3 Family history of malignant neoplasm of breast
CPT/HCPCS: 77063; 77067

== ENCOUNTER → 2022-10-15 07:01 | Outpatient (CLI) | payer OTHER, SELFPAY ==
[2022-10-15 08:14] LABS: Add Manual Diff / Slide Review NO; Basophils Absolute Auto 0 /uL (0-100); Basophils Percent Auto 0.4 % (0-2); Eosinophils Absolute Auto 100 /uL (0-450); Hematocrit 43.3 % (36-46); Hemoglobin 14.9 g/dL (12.0-16.0); Lymphocytes Absolute Auto 2200 /uL (1100-4500); Lymphocytes Percent Auto 40.4 % (25-40); Mean Corpuscular HGB Conc 34.4 % (30-36); Mean Corpuscular Hemoglobin 32.6 PG (26-34); Mean Corpuscular Volume 94.8 fL (80-100); Monocytes Absolute Auto 600 /uL (0-900); Monocytes Percent Auto 10.8 % (3-14); Neutrophils Absolute Auto 2600 /uL (1500-7000); Neutrophils Percent Auto 47.4 % (50-75); Platelet Count 261 X10^3/uL (150-400); Red Blood Cell Count 4.57 X10^6/uL (4.0-5.2); Red Cell Distribution Width 12.7 % (11.6-14.8); White Blood Cell Count 5.6 X10^3/uL (4.5-11.0)
[2022-10-15 08:52] LABS: Alanine Aminotransferase 24 IU/L (<35); Albumin 4.3 g/dL (3.5-5.0); Albumin Globulin Ratio 1.8 (1.0-2.8); Alkaline Phosphatase 82 U/L (38-126); Aspartate Aminotransferase 22 IU/L (14-36); BUN Creatinine Ratio 26.5 (6-22); Bilirubin Total 0.6 mg/dL (0.2-1.3); Blood Urea Nitrogen 18 mg/dL (7-17); Calcium 9.1 mg/dL (8.4-10.2); Carbon Dioxide 26 mmol/L (22-32); Chloride 101 mmol/L (98-107); Cholesterol 172 mg/dL (140-199); Estimated Glomerular Filt Rate > 60 mL/min (>60); Globulin 2.4 g/dL (1.7-4.1); Glucose 106 mg/dL (80-110); HDL Cholesterol 61 mg/dL (40-60); HEMOLYSIS < 15 (0-50); LDL Cholesterol Calculated 71 mg/dL (<100); Potassium 4.3 mmol/L (3.4-5.1); Sodium 135 mmol/L (137-145); Total Protein 6.7 g/dL (6.3-8.2); Triglycerides 198 mg/dL (35-150)
[2022-10-15 09:22] LABS: TSH w/ Reflex to FT4 3.59 uIU/mL (0.47-4.68)
[2022-10-15 10:33] LABS: Creatinine Urine Random 129.6 mg/dL; Microalbumi Creatinin Ratio Ur 8.4 ug/mg CR (<30); Microalbumin Urine Random 1.1 mg/dL (0-1.6)
== END ==
PROVIDERS: Family Provider Family Medicine; PCP Family Medicine; Referring Provider Family Medicine; Visit Provider Family Medicine
DX: E78.5 Hyperlipidemia, unspecified (principal); I10 Essential (primary) hypertension; R73.09 Other abnormal glucose; R94.4 Abnormal results of kidney function studies; Z83.3 Family history of diabetes mellitus
CPT/HCPCS: 36415; 80053; 80061; 82043; 82570; 84443; 85025

== ENCOUNTER 2022-12-25 14:33 | Emergency (ER) | payer OTHER, SELFPAY ==
[2022-12-25 14:41] VITALS: BP 135/82; PULSE 101; RESP 16; TEMP 36.3; O2SAT 94; BMI 39.9
--- NOTE | 2022-12-25 15:18 | ED_ITS ---
HPI - General Adult General Chief complaint: Abdominal Pain Stated complaint: poss hernia Time Seen by Provider: 12/25/22 15:05 Source: patient Mode of arrival: Ambulatory Limitations: no limitations History of Present Illness HPI narrative: Patient is a 62-year-old female. States that 2 days ago she was outside working in the garden. She picked up a plant. No issues with this action however later on in the day she had left-sided abdominal pain and what she felt like was a mass on the left side of her abdomen. Was quite tender. She pushed on the mass which made things feel better. The mass is now gone. She has residual discomfort in that area but it is much better than before. No fevers. No vomiting. No diarrhea. She still passing flatus. No urinary symptoms. She has had a hysterectomy and a cholecystectomy and also a lap band placement and then removal. She contacted her insurance advice line who advised that she come to the emergency department for evaluation. Related Data Previous Rx's Medication Instructions Recorded scopolamine base 1 mg over 3 days 1 patch transdermal Q3D PRN motion 04/07/22 transdermal patch sickness #10 ea semaglutide (weight loss) 0.25 0.25 mg (0.5 mL) SUBCUT QWEEK #2 mL 07/08/22 mg/0.5 mL subcutaneous pen injector (Helenvbooker) semaglutide 0.25 mg or 0.5 mg (2 0.25 mg (0.2 mL) SUBCUT QWEEK #1.5 07/24/22 mg/1.5 mL) subcutaneous pen mL injector (Ozempic) zolpidem 5 mg tablet (Ambien) 5 mg PO BEDTIME PRN insomnia #30 12/01/22 tabs lisinopril 20 1 tab PO DAILY #90 tabs 12/18/22 mg-hydrochlorothiazide 12.5 mg tablet Allergies Allergy/AdvReac Type Severity Reaction Status Date / Time No Known Drug Allergies Allergy Verified 12/25/22 14:41 Review of Systems Constitutional Constitutional: Reports system reviewed and no additional complaints, except as documented Cardiovascular Cardiovascular: Reports system reviewed and no additional complaints, except as documented Respiratory Respiratory: Reports system reviewed and no additional complaints, except as documented Gastrointestinal Gastrointestinal: Reports system reviewed and no additional complaints, except as documented Genitourinary Genitourinary: Reports system reviewed and no additional complaints, except as documented Integumentary/Breasts Skin/Breast: Reports system reviewed and no additional complaints, except as documented Neurologic Neurologic: Reports system reviewed and no additional complaints, except as documented Hematologic/Lymphatic On Anticoagulants: No Patient History Medical History BMI 39.0-39.9,adult Decreased GFR (09/2020) Surgical History Anesthesia History of section (~1996) History of cholecystectomy (~2016) Hx of laparoscopic gastric banding (~2004) Family History Father Hypertension Hyperlipidemia Stroke Colon polyps Mother Dementia Diabetes mellitus History of bipolar disorder Breast cancer Skin cancer Hypertension Mental health problem Sister Hypertension Grandfather No problems noted. Grandmother Mental health problem Social History Smoking Status: Never smoker second hand exposure: No alcohol intake: current (wine, 2x/week) substance use type: does not use Smoking Status: Never smoker alcohol intake frequency: holidays/special occasions only Substance Use Type: does not use Exam Initial Vital Signs Initial Vital Signs: Vital Signs Temperature 97.3 F L 12/25/22 14:41 Pulse Rate 101 H 12/25/22 14:41 Respiratory Rate 16 12/25/22 14:41 Blood Pressure 135/82 12/25/22 14:41 Pulse Oximetry 94 12/25/22 14:41 Oxygen Delivery Method Room Air 12/25/22 14:41 Const General: cooperative, comfortable and No ill appearing Resp Effort & Inspection: normal respiratory effort Cardio Rate: regular rate GI Inspection: normal to inspection and non-distended Palpation: soft, No firm, No guarding, mass and tender (Left-sided abdomen) Back/Spine/Pelvis Back: No CVA tenderness Neuro General: patient alert, patient awake, patient oriented x3 and moves all extremities Extrem General: normal to inspection and capillary refill normal Course Orders Ordered: ED Orders 12/25/22 15:19 CT abdomen pelvis w con Stat 12/25/22 15:25 Complete Blood Count AUTO DIFF Stat Comprehensive Metabolic Panel Stat Lipase Stat Vital Signs Vital signs: Vital Signs - 8 hr 12/25/22 14:41 Temperature 97.3 F L Pulse Rate 101 H Respiratory Rate 16 Blood Pressure 135/82 Pulse Oximetry 94 Oxygen Delivery Method Room Air Medical Decision Making Lab Data Lab results reviewed: Yes I reviewed the patient's lab results. 12/25/22 15:25 12/25/22 15:25 Labs: Lab Results 12/25/22 12/25/22 12/25/22 Range/Units 15:25 15:25 15:25 WBC 7.2 (4.5-11.0) X10^3/uL RBC 4.30 (4.0-5.2) X10^6/uL Hgb 14.6 (12.0-16.0) g/dL Hct 40.8 (36-46) % MCV 95.0 (80-100) fL MCH 34.0 (26-34) PG MCHC 35.7 (30-36) % RDW 12.9 (11.6-14.8) % Plt Count 273 (150-400) X10^3/uL Neut % (Auto) 60.4 (50-75) % Lymph % (Auto) 27.2 (25-40) % [place] % (Auto) 10.5 (3-14) % Eos % (Auto) 0.9 L (2-4) % Baso % (Auto) 1.0 (0-2) % Neut # (Auto) 4400 (9624-8205) /uL Lymph # (Auto) 2000 (8689-1178) /uL [place] # (Auto) 800 (0-900) /uL Eos # (Auto) 100 (0-450) /uL Baso # (Auto) 100 (0-100) /uL Sodium 137 (137-145) mmol/L Potassium 3.7 (3.4-5.1) mmol/L Chloride 103 (98-107) mmol/L Carbon Dioxide 26 (22-32) mmol/L BUN 20 H (7-17) mg/dL Creatinine 0.73 (0.52-1.04) mg/dL Estimated GFR > 60 (>60) mL/min BUN/Creatinine Ratio 27.4 H (6-22) Glucose 152 H (80-110) mg/dL Calcium 9.3 (8.4-10.2) mg/dL Total Bilirubin 0.5 (0.2-1.3) mg/dL AST 32 (14-36) IU/L ALT 33 (<35) IU/L Alkaline Phosphatase 77 (38-126) U/L Total Protein 7.1 (6.3-8.2) g/dL Albumin 4.2 (3.5-5.0) g/dL Globulin 2.9 (1.7-4.1) g/dL Albumin/Globulin Ratio 1.4 (1.0-2.8) Lipase 117 (23-300) U/L Imaging Data CT scan - abdomen/pelvis: Radiologist's Impression: PROCEDURE:? CT ABDOMEN PELVIS W CON ? INDICATIONS:? L sided upper abd pain concern for hernia ? TECHNIQUE:? After the administration of intravenous contrast, axial sections acquired from the lung bases to the pubic symphysis.? Coronal and sagittal reformats were performed.? For radiation dose reduction, the following was used:? automated exposure control, adjustment of mA and/or kV according to patient size.? ? COMPARISON:? None. ? FINDINGS:? Image quality:? Excellent.? ? Lung bases:? Unremarkable except for presence of a small fat herniation through a left posterior medial diaphragmatic defect, allowing a small portion of left upper quadrant fat to protrude slightly into the pleural space.? This is an incidental finding and highly unlikely to be symptomatic. Heart:? No significant findings. ? ABDOMEN: Liver:? Unremarkable except for mild fatty infiltration throughout.? ? Gallbladder:? Previously resected? ? Biliary ducts:? Unremarkable.? ? Pancreas:? Unremarkable.? ? Spleen:? Unremarkable.? ? Adrenal Glands:? Unremarkable.? ? Kidneys and Ureters:? Unremarkable except for a nonobstructive right upper 3rd renal 3 by 8 mm calcification.? ? ? Stomach and Bowel:? Stomach, small bowel loops, and colon are unremarkable.? A gastric lap band device is not identified. Peritoneum:? No abnormal intraperitoneal fluid.? No free air.? ? Ventral Wall: ? No hernias.? Abdominal Nodes:? No retroperitoneal or mesenteric adenopathy by size criteria.? Vessels:? Aorta and inferior vena cava are normal in size.? ? PELVIS: Pelvic Organs:? Unremarkable.? ? Bladder:? Unremarkable.? ? Pelvic Nodes: No enlarged lymph nodes.? Miscellaneous: No hernias are seen. ? ? No appendix inflammation is seen-a normal appendix was identified at the right lower quadrant. ? Bones:? Unremarkable.? IMPRESSION:? Incidental finding of a small posterior left diaphragmatic defect allowing a small amount of left upper quadrant fat to herniate slightly into the left pleural space. ?No edema is associated within the fat involved, and such structures are not rare and very rarely produce symptoms. ? Normal appendix found right lower quadrant. ? A nonobstructive 3 x 8 mm upper pole right renal collecting system calculus, normal appendix found.? Prior cholecystectomy. [facility] Narrative Medical decision making narrative: CT scan today does not show any signs of a hernia in the area of concern in the left side of her abdomen. Her exam is relatively benign. She could potentially have had a muscle spasm on this side. No fevers. No indication for surgical consultation. No indication for admission in the hospital. I did discuss the CT scan with her. Advised that she contact her primary doctor for follow-up. She was given return precautions. She expressed understanding and agreement. Discharge Plan Departure Patient Disposition: Home Clinical Impression: Abdominal pain Instructions: DI for Abdominal Pain-Adult Activity Restrictions/Additional Instructions: Recommend that you continue to take all of your medications as directed. Contact your primary doctor for follow-up. Return to the emergency department for new or worsening symptoms. Prescriptions: No Action scopolamine base 1 mg over 3 days patch 3 day 1 patch transdermal Q3D PRN (Reason: motion sickness) Qty: 10 2RF Wegovy 0.25 mg/0.5 mL pen injector 0.25 mg SUBCUT QWEEK Qty: 2 3RF Rx Instructions: administer weeks 1 through 4 of therapy Ozempic 0.25 mg or 0.5 mg(2 mg/1.5 mL) pen injector 0.25 mg SUBCUT QWEEK Qty: 1.5 3RF Rx Instructions: for 4 doses zolpidem [Ambien] 5 mg tablet 5 mg PO BEDTIME PRN (Reason: insomnia) Qty: 30 0RF lisinopril-hydrochlorothiazide 20-12.5 mg tablet 1 tab PO DAILY Qty: 90 3RF Referrals: Wayne Perea MD [Primary Care Provider] - Stand Alone Forms: Patient Portal/API
--- NOTE | 2022-12-25 15:19 | DI.CT.S_ITS ---
PROCEDURE: CT ABDOMEN PELVIS W CON INDICATIONS: L sided upper abd pain concern for hernia TECHNIQUE: After the administration of intravenous contrast, axial sections acquired from the lung bases to the pubic symphysis. Coronal and sagittal reformats were performed. For radiation dose reduction, the following was used: automated exposure control, adjustment of mA and/or kV according to patient size. COMPARISON: None. FINDINGS: Image quality: Excellent. Lung bases: Unremarkable except for presence of a small fat herniation through a left posterior medial diaphragmatic defect, allowing a small portion of left upper quadrant fat to protrude slightly into the pleural space. This is an incidental finding and highly unlikely to be symptomatic. Heart: No significant findings. ABDOMEN: Liver: Unremarkable except for mild fatty infiltration throughout. Gallbladder: Previously resected Biliary ducts: Unremarkable. Pancreas: Unremarkable. Spleen: Unremarkable. Adrenal Glands: Unremarkable. Kidneys and Ureters: Unremarkable except for a nonobstructive right upper 3rd renal 3 by 8 mm calcification. Stomach and Bowel: Stomach, small bowel loops, and colon are unremarkable. A gastric lap band device is not identified. Peritoneum: No abnormal intraperitoneal fluid. No free air. Ventral Wall: No hernias. Abdominal Nodes: No retroperitoneal or mesenteric adenopathy by size criteria. Vessels: Aorta and inferior vena cava are normal in size. PELVIS: Pelvic Organs: Unremarkable. Bladder: Unremarkable. Pelvic Nodes: No enlarged lymph nodes. Miscellaneous: No hernias are seen. No appendix inflammation is seen-a normal appendix was identified at the right lower quadrant. Bones: Unremarkable. IMPRESSION: Incidental finding of a small posterior left diaphragmatic defect allowing a small amount of left upper quadrant fat to herniate slightly into the left pleural space. No edema is associated within the fat involved, and such structures are not rare and very rarely produce symptoms. Normal appendix found right lower quadrant. A nonobstructive 3 x 8 mm upper pole right renal collecting system calculus, normal appendix found. Prior cholecystectomy. Dictated by: Joesph Quiroz M.D. on 12/25/2022 at 16:56 Approved by: Joesph Quiroz M.D. on 12/25/2022 at 17:06
[2022-12-25 15:42] LABS: Add Manual Diff / Slide Review NO; Basophils Absolute Auto 100 /uL (0-100); Eosinophils Absolute Auto 100 /uL (0-450); Eosinophils Percent Auto 0.9 % (2-4); Hematocrit 40.8 % (36-46); Hemoglobin 14.6 g/dL (12.0-16.0); Lymphocytes Absolute Auto 2000 /uL (1100-4500); Lymphocytes Percent Auto 27.2 % (25-40); Mean Corpuscular HGB Conc 35.7 % (30-36); Monocytes Absolute Auto 800 /uL (0-900); Monocytes Percent Auto 10.5 % (3-14); Neutrophils Absolute Auto 4400 /uL (1500-7000); Neutrophils Percent Auto 60.4 % (50-75); Platelet Count 273 X10^3/uL (150-400); Red Cell Distribution Width 12.9 % (11.6-14.8); White Blood Cell Count 7.2 X10^3/uL (4.5-11.0)
[2022-12-25 16:06] LABS: Alanine Aminotransferase 33 IU/L (<35); Albumin 4.2 g/dL (3.5-5.0); Albumin Globulin Ratio 1.4 (1.0-2.8); Alkaline Phosphatase 77 U/L (38-126); Aspartate Aminotransferase 32 IU/L (14-36); BUN Creatinine Ratio 27.4 (6-22); Bilirubin Total 0.5 mg/dL (0.2-1.3); Blood Urea Nitrogen 20 mg/dL (7-17); Calcium 9.3 mg/dL (8.4-10.2); Carbon Dioxide 26 mmol/L (22-32); Chloride 103 mmol/L (98-107); Estimated Glomerular Filt Rate > 60 mL/min (>60); Globulin 2.9 g/dL (1.7-4.1); Glucose 152 mg/dL (80-110); HEMOLYSIS 44 (0-50); Lipase 117 U/L (23-300); Potassium 3.7 mmol/L (3.4-5.1); Sodium 137 mmol/L (137-145); Total Protein 7.1 g/dL (6.3-8.2)
== END 2022-12-25 17:47 | disposition home or self-care (01) ==
PROVIDERS: Emergency Provider Emergency Medicine; Family Provider Family Medicine; PCP Family Medicine
DX: R10.9 Unspecified abdominal pain (principal)
CPT/HCPCS: 36415; 74177; 80053; 83690; 85025; 99283; 99284; Q9967

== ENCOUNTER → 2023-04-01 16:57 | Outpatient (CLI) | payer OTHER, SELFPAY ==
[2023-04-03 04:12] LABS: Labcorp Hemoglobin (Hb) A1c 6.1 % (4.8-5.6)
== END ==
PROVIDERS: Family Provider Family Medicine; PCP Family Medicine; Referring Provider Family Medicine; Visit Provider Family Medicine
DX: R73.09 Other abnormal glucose (principal)
CPT/HCPCS: 36415; 83036

== ENCOUNTER → 2023-08-26 14:57 | Outpatient (CLI) | payer OTHER, SELFPAY ==
[2023-08-26 16:17] LABS: Hemoglobin A1C% w Est Avg Glu 5.8 % (4.0-6.0)
== END ==
PROVIDERS: Family Provider Family Medicine; PCP Family Medicine; Referring Provider Family Medicine; Visit Provider Family Medicine
DX: R73.09 Other abnormal glucose (principal)
CPT/HCPCS: 36415; 83036

== ENCOUNTER 2023-10-15 06:51 | Day surgery (SDC) | payer OTHER, SELFPAY ==
[2023-10-15] VITALS (9 sets, daily range): BP systolic 73–138; BP diastolic 47–84; PULSE 18–84; RESP 14–20; TEMP 36.2–36.4; O2SAT 92–98
[2023-10-15] MEDS: LACTATED RINGERS 1,000 ML 100 ML IV (07:31)
--- NOTE | 2023-10-15 07:42 | P.HP_ITS ---
History of Present Illness History of Present Illness Date Patient Seen: 10/15/23 Time Patient Seen: 07:43 Chief complaint: Colonoscopy Narrative: Last scope was 5 years ago. Strong family history for colon cancer [facility] Medical History Family history of colon cancer BMI 39.0-39.9,adult Decreased GFR (09/2020) Surgical History Anesthesia History of section (~1996) Hx of laparoscopic gastric banding (~2004) History of cholecystectomy (~2016) Family History Father Hypertension Hyperlipidemia Stroke Colon polyps Colon cancer Mother Dementia Diabetes mellitus History of bipolar disorder Breast cancer Skin cancer Hypertension Mental health problem Sister Hypertension Grandfather No problems noted. Grandmother Mental health problem Social History Smoking Status: Never smoker second hand exposure: No alcohol intake: current (wine, 2x/week) substance use type: does not use Meds Home Medications and Allergies Home Medications Medication Instructions Recorded Confirmed Type lisinopril 20 1 tab PO DAILY #90 tabs 03/05/23 10/15/23 Rx mg-hydrochlorothiazide 12.5 mg tablet zolpidem 5 mg tablet (Ambien) 5 mg PO BEDTIME PRN insomnia #60 04/29/23 10/15/23 Rx tabs semaglutide 0.25 mg or 0.5 mg (2 0.5 mg SUBCUT QWEEK 09/02/23 10/15/23 History mg/3 mL) subcutaneous pen injector ondansetron 4 mg disintegrating 4 mg PO Q8H PRN nausea and 09/28/23 10/15/23 Rx tablet vomiting #90 tabs metformin 500 mg tablet 500 mg PO BID 10/15/23 10/15/23 History Allergies Allergy/AdvReac Type Severity Reaction Status Date / Time No Known Drug Allergies Allergy Verified 10/15/23 07:34 Review of Systems Review of Systems ROS: Yes All systems reviewed with the patient and are negative except as otherwise documented Exam Const General: cooperative and comfortable HENMT Head: normocephalic and atraumatic Eyes General: appearance normal, both eyes and all related structures Neck Neck: normal visual inspection and trachea midline Resp Effort & Inspection: normal respiratory effort and able to speak in complete sentences Cardio Rate: regular rate Rhythm: regular rhythm GI Palpation: soft Skin General: elasticity normal and turgor normal Neuro General: patient alert, patient awake and patient oriented x3 Extrem General: normal to inspection Psych Appearance: grossly normal Mental Status: mental status grossly normal Thought Process: normal Judgment: judgment good Assessment & Plan Assessment & Plan narrative: Family history for colon cancer colonoscopy with anesthesia Time Spent With Patient Time with patient: less than 30 minutes
--- NOTE | 2023-10-15 08:16 | PM.OP.COLON ---
Operative Date/Time/Diagnoses Date of procedure: 10/15/23 Time of procedure: 08:16 Pre-op diagnosis: Family history colon cancer Post-op diagnosis: same Procedure & Clinicians Study performed: Colonoscopy with anesthesia Same procedure as scheduled: Yes Indications: Family history for colon cancer Surgeon: Radha Sepulveda Procedure Notes Procedure in detail: Preop diagnosis: Family history of colon cancer Postop diagnosis: Same Operative procedure: Colonoscopy with anesthetic Surgeon: Sonal Sepulveda MD Findings: Normal colonoscopy. Adequate bowel prep. Was unable to visualize the full area of the cecum. Procedure: Patient placed in a lateral position. Rectal exam performed showing normal tone no masses. Colonoscope was inserted into the rectum and advanced to ileocecal valve with minimal difficulty. Insufflation extraction of the scope including abdominal pressure and a retroflex in the rectum had the above findings. Impression: No polyps identified. However was not able to fully visualize the internal area of the cecum regardless of manipulation of the scope. Plan: Repeat colonoscopy in 5 years unless otherwise indicated by change in clinical condition Specimen(s): none sent Complications: none Post-procedure Recommendations: Colonoscopy in 5 years Follow up: as needed Disposition: PACU
--- NOTE | 2023-10-15 08:55 | SUR.PHASEII ---
pt to be discharged with . Getting dressed denies dizziness and nausea . States she is going to have her take her to breakfast. Pt to be discharged awake and alert.
== END 2023-10-15 08:58 | disposition home or self-care (01) ==
PROVIDERS: Family Provider Family Medicine; PCP Family Medicine; Referring Provider Surgery; Visit Provider Surgery
PROC: 0DJD8ZZ Inspection of Lower Intestinal Tract, Via Natural or Artificial Opening Endoscopic (ICD-10-PCS; CPT 45378; principal; 2023-10-15 07:45)
DX: Z12.11 Encounter for screening for malignant neoplasm of colon (principal); Z80.0 Family history of malignant neoplasm of digestive organs
CPT/HCPCS: 45378; J2704

== ENCOUNTER → 2023-10-22 15:12 | Outpatient (CLI) | payer OTHER, SELFPAY ==
--- NOTE | 2023-10-22 15:13 | DI.MG.S_ITS ---
BILATERAL DIGITAL SCREENING MAMMOGRAM 3D/2D WITH CAD: 10/22/2023 CLINICAL: Routine screening. Family history of breast cancer. Comparison is made to exams dated: 10/12/2022 mammogram, 10/08/2021 mammogram - [facility], and 03/01/2020 mammogram - outside location. Both breasts are almost entirely fatty (category a/<25% glandular tissue). Current study was also evaluated with a Computer Aided Detection (CAD) system. There are benign calcifications in the left breast. No significant masses, calcifications, or other findings are seen in either breast. There has been no significant interval change. IMPRESSION: BENIGN There is no mammographic evidence of malignancy. A 1 year screening mammogram is recommended. Based on the Tyrer Cuzick model (a risk assessment model) the patient's lifetime risk is 5.6% and her 10 year risk is 2.3%. According to the ACR, ACS, and NCCN guidelines, an annual breast MRI exam along with mammogram is recommended if the patient's lifetime risk is 20% or greater. This exam was interpreted at Station ID: [id number]. NOTE: For mammograms, a report in lay terms will be sent to the patient. Approximately 15% of breast malignancies will not be visualized mammographically. In the management of a palpable breast mass, a negative mammogram must not discourage biopsy of a clinically suspicious lesion. Electronically Signed By: Yuni farrell/tonia:10/22/2023 16:20:29 letter sent: Normal Exam ACR BI-RADS Category 2: Benign Finding(s) 3342F
== END ==
PROVIDERS: Family Provider Family Medicine; PCP Family Medicine; Referring Provider Family Medicine; Visit Provider Family Medicine
DX: Z12.31 Encounter for screening mammogram for malignant neoplasm of breast (principal); Z80.3 Family history of malignant neoplasm of breast
CPT/HCPCS: 77063; 77067

== ENCOUNTER → 2024-02-16 09:02 | Outpatient (CLI) | payer OTHER, SELFPAY ==
[2024-02-16 10:43] LABS: Creatinine Urine Random 135.87 mg/dL
[2024-02-16 10:48] LABS: Add Manual Diff / Slide Review NO; Basophils Absolute Auto 0 /uL (0-100); Basophils Percent Auto 0.3 % (0-2); Eosinophils Absolute Auto 0 /uL (0-450); Eosinophils Percent Auto 0.8 % (2-4); Hemoglobin 14.3 g/dL (12.0-16.0); Lymphocytes Absolute Auto 1500 /uL (1100-4500); Lymphocytes Percent Auto 28.2 % (25-40); Mean Corpuscular HGB Conc 34.9 % (30-36); Mean Corpuscular Hemoglobin 33.6 PG (26-34); Mean Corpuscular Volume 96.1 fL (80-100); Microalbumin Urine Random 0.7 mg/dL (0-1.6); Monocytes Absolute Auto 500 /uL (0-900); Monocytes Percent Auto 9.8 % (3-14); Neutrophils Absolute Auto 3100 /uL (1500-7000); Neutrophils Percent Auto 60.9 % (50-75); Platelet Count 257 X10^3/uL (150-400); Red Blood Cell Count 4.26 X10^6/uL (4.0-5.2); Red Cell Distribution Width 12.9 % (11.6-14.8); White Blood Cell Count 5.2 X10^3/uL (4.5-11.0)
[2024-02-16 11:26] LABS: Alanine Aminotransferase 34 IU/L (<35); Albumin 4.4 g/dL (3.5-5.0); Albumin Globulin Ratio 1.7 (1.0-2.8); Alkaline Phosphatase 74 U/L (38-126); Aspartate Aminotransferase 31 IU/L (14-36); BUN Creatinine Ratio 26.1 (6-22); Bilirubin Total 0.6 mg/dL (0.2-1.3); Blood Urea Nitrogen 18 mg/dL (7-17); Calcium 8.8 mg/dL (8.4-10.2); Carbon Dioxide 24 mmol/L (22-32); Chloride 106 mmol/L (98-107); Cholesterol 186 mg/dL (140-199); Estimated Glomerular Filt Rate > 60 mL/min (>60); Globulin 2.6 g/dL (1.7-4.1); Glucose 105 mg/dL (80-110); HDL Cholesterol 70 mg/dL (40-60); HEMOLYSIS < 15 (0-50); LDL Cholesterol Calculated 91 mg/dL (<100); Potassium 4.2 mmol/L (3.4-5.1); Sodium 137 mmol/L (137-145); Triglycerides 125 mg/dL (35-150)
[2024-02-16 11:55] LABS: TSH w/ Reflex to FT4 1.93 uIU/mL (0.47-4.68)
[2024-02-16 12:38] LABS: Hemoglobin A1C% w Est Avg Glu 5.5 % (4.0-6.0)
== END ==
PROVIDERS: Family Provider Family Medicine; PCP Family Medicine; Referring Provider Family Medicine; Visit Provider Family Medicine
DX: R73.03 Prediabetes (principal); R73.09 Other abnormal glucose; E78.5 Hyperlipidemia, unspecified; I10 Essential (primary) hypertension
CPT/HCPCS: 36415; 80053; 80061; 82043; 82570; 83036; 84443; 85025

== ENCOUNTER → 2024-11-07 15:31 | Outpatient (CLI) | payer OTHER, SELFPAY ==
--- NOTE | 2024-11-07 15:33 | DI.MG.S_ITS ---
MM screening mammo BI: 11/07/2024. BI-RADS: 1 CLINICAL: 64-year old female for bilateral screening mammogram. Tyrer-Cuzick lifetime risk of 11.5%. Current reported family history of breast cancer: mother. PRIOR EXAMS 10/22/2023, 10/12/2022, 10/08/2021. MAMMOGRAPHY TECHNIQUE: 2D and 3D (tomosynthesis) digital mammographic views obtained, with additional images as needed for full coverage. Current study was also evaluated with a Computer Aided Detection (CAD) system. DENSITY B. There are scattered areas of fibroglandular density. MAMMOGRAPHY FINDINGS Bilateral: No suspicious mass, asymmetry, microcalcification, or other abnormality seen. No significant change from comparison. IMPRESSION: * No evidence of malignancy. RECOMMENDATIONS Bilateral * Annual screening mammography. OVERALL ASSESSMENT CATEGORY BI-RADS-1: Negative. The [employer] recommends annual screening mammography beginning at age 40 for women with average risk of breast cancer. ELECTRONICALLY SIGNED: Abbie Chang M.D. on 11/08/2024 at 08:36:27 AM PT Interpreting Station ID: [id number]
== END ==
PROVIDERS: Family Provider Family Medicine; PCP Family Medicine; Referring Provider Family Medicine; Visit Provider Family Medicine
DX: Z12.31 Encounter for screening mammogram for malignant neoplasm of breast (principal); Z80.3 Family history of malignant neoplasm of breast
CPT/HCPCS: 77063; 77067

== ENCOUNTER → 2025-06-28 07:48 | Outpatient (CLI) | payer OTHER, SELFPAY | PROVIDERS: PCP Family Medicine; Visit Provider Chiropractor | DX: R39.15 Urgency of urination (principal) | CPT/HCPCS: 87077; 87086; 87186 ==